=== PATIENT | male | born 1985 | race American Indian/Alaskan Native ===

== ENCOUNTER 2016-11-29 17:48 | Emergency (ER) | payer MEDICARE, MEDICAID ==
[2016-11-29 21:08] VITALS: BP 143/83
--- NOTE | 2016-11-29 22:03 | EDM.PDOC ---
ED HPI GENERAL MEDICAL PROBLEM - General Chief Complaint: Gastrointestinal Problem Stated Complaint: BLOOD IN STOOL, [id number] Time Seen by Provider: 11/29/16 19:50 Source of Information: Reports: Family - History of Present Illness INITIAL COMMENTS - FREE TEXT/NARRATIVE: ED with family, Family reports patient 2 day hx of "bloody stools" Famiy note bright red bleeding on toilet paper but not in stool or BM. Patient hax CKD, blind and developmentally challenged. No vomiting, appetite has been good. No urinary difficulties, Bilateral Lower Back Pain Score (Numeric/FACES): 10 - Related Data Allergies Allergy/AdvReac Type Severity Reaction Status Date / Time amoxicillin Allergy Cannot Verified 05/12/16 23:00 Remember cefaclor Allergy Cannot Verified 05/12/16 23:00 Remember dextromethorphan Allergy Cannot Verified 05/12/16 23:00 Remember metoclopramide Allergy Cannot Verified 05/12/16 23:00 Remember Penicillins Allergy Cannot Verified 05/12/16 23:00 Remember Sulfa (Sulfonamide Allergy Cannot Verified 05/12/16 23:00 Antibiotics) Remember Home Meds: Home Meds Mycophenolate [Myfortic] 1 tab PO BID 08/20/14 [History] Atenolol [Atenolol] 50 mg PO DAILY 10/20/15 [History] Lisinopril 20 mg PO DAILY 10/20/15 [History] Pregabalin [Lyrica] 100 mg PO DAILY 10/20/15 [History] oxyCODONE 5 mg PO BID 10/20/15 [History] Past Medical History HEENT History: Reports: Impaired Vision Other HEENT History: blind Cardiovascular History: Reports: Hypertension Respiratory History: Reports: None Gastrointestinal History: Reports: Cholelithiasis Genitourinary History: Reports: Renal Disease Other Genitourinary History: chronic kidney disease, proteinuria, focal segmental glomerulosclerosis Musculoskeletal History: Reports: Arthritis Other Psychiatric History: mental retardation Endocrine/Metabolic History: Reports: None Hematologic History: Reports: None Immunologic History: Reports: None Oncologic (Cancer) History: Reports: None - Past Surgical History GI Surgical History: Reports: Cholecystectomy Social & Family History - Tobacco Use Smoking Status *Q: Never Smoker Second Hand Smoke Exposure: No - Caffeine Use Caffeine Use: Reports: None - Alcohol Use Days Per Week of Alcohol Use: 0 - Recreational Drug Use Recreational Drug Use: No ED ROS GENERAL - Review of Systems Review Of Systems: See Below Constitutional: Denies: Fever, Chills, Weakness, Decreased Appetite HEENT: Reports: No Symptoms Respiratory: Reports: No Symptoms Cardiovascular: Reports: No Symptoms GI/Abdominal: Reports: No Symptoms : Reports: No Symptoms Musculoskeletal: Reports: No Symptoms Skin: Reports: No Symptoms Neurological: Reports: No Symptoms ED EXAM, GI/ABD - Physical Exam Exam: See Below Exam Limited By: No Limitations General Appearance: Alert, No Apparent Distress Ears: Normal External Exam Nose: Normal Inspection Throat/Mouth: Normal Inspection Head: Atraumatic, Normocephalic Neck: Normal Inspection Respiratory/Chest: No Respiratory Distress, Lungs Clear Cardiovascular: Normal Peripheral Pulses, Regular Rate, Rhythm GI/Abdominal Exam: Normal Bowel Sounds, Soft, Tender (lower quadrants with palpation) (Male) Exam: Other (uncooperative with exam. slight excoriation of skin in rectal area vs true hemocult + stool. ) Back Exam: Normal Inspection Extremities: Normal Inspection, Pedal Edema (trace) Neurological: Alert Psychiatric: Normal Affect, Normal Mood Skin Exam: Warm, Dry. No: Intact (slight excoriation of rectal area) Course - Vital Signs Last Recorded V/S: Last Vital Signs Temp 98 F 11/29/16 18:39 Pulse 77 11/29/16 21:07 Resp 16 11/29/16 21:07 BP 143/83 H 11/29/16 21:07 Pulse Ox 98 11/29/16 21:07 - Orders/Labs/Meds Labs: Laboratory Tests 11/29/16 11/29/16 11/29/16 Range/Units 20:28 20:28 20:28 WBC 15.9 H (5.0-10.0) 10^3/uL RBC 6.18 (4.6-6.2) 10^6/uL Hgb 16.2 (14.0-18.0) g/dL Hct 50.0 (40.0-54.0) % MCV 80.9 (80-100) fL MCH 26.2 L (27.0-34.0) pg MCHC 32.4 L (33.0-35.0) g/dL Plt Count 386 (150-450) 10^3/uL Neut % (Auto) 66.0 (42.2-75.2) % Lymph % (Auto) 23.2 (20.5-50.1) % [place] % (Auto) 7.1 (2-8) % Eos % (Auto) 3.1 H (1.0-3.0) % Baso % (Auto) 0.6 (0.0-1.0) % Add Manual Diff Yes Neutrophils % (Manual) 68 % Band Neutrophils % % Lymphocytes % (Manual) 25 % Monocytes % (Manual) 6 % Eosinophils % (Manual) 1 % PT 9.7 (9.0-12.0) SEC INR 1.0 (0.9-1.2) Sodium 141 (135-145) mmol/L Potassium 4.2 (3.6-5.0) mmol/L Chloride 106 (101-111) mmol/L Carbon Dioxide 23.0 (21.0-31.0) mmol/L Anion Gap 16.2 BUN 36 H (7-18) mg/dL Creatinine 3.1 H (0.6-1.3) mg/dL Est Cr Clr Drug Dosing 29.48 mL/min Estimated GFR (MDRD) 23 BUN/Creatinine Ratio 11.61 Glucose 103 (74-105) mg/dL Calcium 9.4 (8.4-10.2) mg/dl Magnesium 1.9 (1.8-2.5) mg/dL Total Bilirubin 0.4 (0.2-1.0) mg/dL AST 18 (10-42) IU/L ALT 16 (10-60) IU/L Alkaline Phosphatase 111 (42-121) IU/L Total Protein 7.5 (6.7-8.2) g/dl Albumin 3.2 (3.2-5.5) g/dl Globulin 4.3 Albumin/Globulin Ratio 0.74 Amylase 46 (28-100) U/L Lipase 38 (22-51) U/L Urine Color (YELLOW) Urine Appearance (CLEAR) Urine pH (5.0-9.0) Ur Specific [place] (1.005-1.030) Urine Protein (NEGATIVE) Urine Glucose (UA) (NEGATIVE) Urine Ketones (NEGATIVE) Urine Occult Blood (NEGATIVE) Urine Nitrite (NEGATIVE) Urine Bilirubin (NEGATIVE) Urine Urobilinogen (0.2-1.0) mg/dL Ur Leukocyte Esterase (NEGATIVE) Urine RBC /HPF Urine WBC (0-5/HPF) /HPF Urine Bacteria (0-FEW/HPF) /HPF 11/29/16 Range/Units 21:20 WBC (5.0-10.0) 10^3/uL RBC (4.6-6.2) 10^6/uL Hgb (14.0-18.0) g/dL Hct (40.0-54.0) % MCV (80-100) fL MCH (27.0-34.0) pg MCHC (33.0-35.0) g/dL Plt Count (150-450) 10^3/uL Neut % (Auto) (42.2-75.2) % Lymph % (Auto) (20.5-50.1) % [place] % (Auto) (2-8) % Eos % (Auto) (1.0-3.0) % Baso % (Auto) (0.0-1.0) % Add Manual Diff Neutrophils % (Manual) % Band Neutrophils % % Lymphocytes % (Manual) % Monocytes % (Manual) % Eosinophils % (Manual) % PT (9.0-12.0) SEC INR (0.9-1.2) Sodium (135-145) mmol/L Potassium (3.6-5.0) mmol/L Chloride (101-111) mmol/L Carbon Dioxide (21.0-31.0) mmol/L Anion Gap BUN (7-18) mg/dL Creatinine (0.6-1.3) mg/dL Est Cr Clr Drug Dosing mL/min Estimated GFR (MDRD) BUN/Creatinine Ratio Glucose (74-105) mg/dL Calcium (8.4-10.2) mg/dl Magnesium (1.8-2.5) mg/dL Total Bilirubin (0.2-1.0) mg/dL AST (10-42) IU/L ALT (10-60) IU/L Alkaline Phosphatase (42-121) IU/L Total Protein (6.7-8.2) g/dl Albumin (3.2-5.5) g/dl Globulin Albumin/Globulin Ratio Amylase (28-100) U/L Lipase (22-51) U/L Urine Color Light yellow (YELLOW) Urine Appearance Clear (CLEAR) Urine pH 6.5 (5.0-9.0) Ur Specific [place]acco[place] 1.015 (1.005-1.030) Urine Protein >=300 H (NEGATIVE) Urine Glucose (UA) Negative (NEGATIVE) Urine Ketones Negative (NEGATIVE) Urine Occult Blood Small H (NEGATIVE) Urine Nitrite Negative (NEGATIVE) Urine Bilirubin Negative (NEGATIVE) Urine Urobilinogen 0.2 (0.2-1.0) mg/dL Ur Leukocyte Esterase Negative (NEGATIVE) Urine RBC 0-5 /HPF Urine WBC 0-5 (0-5/HPF) /HPF Urine Bacteria Rare (0-FEW/HPF) /HPF - Radiology Interpretation Free Text/Narrative:: CT abdomen negative Departure - Departure Time of Disposition: 21:59 Disposition: Home, Self-Care 01 Condition: Good Clinical Impression: Rectal bleed - Discharge Information Instructions: Hemorrhoids, [id number] Referrals: PCP,None [Ordering Only Provider] - Forms: ED Department Discharge Additional Instructions: follow up with primary care if worsening of symptoms recheck blood pressure in clinic urgent follow up if noting blood in stool.
== END 2016-11-29 22:39 | disposition home or self-care (01) ==
LOC: DL.ED 17:48
DX: K62.5 Hemorrhage of anus and rectum (principal); H54.7 Unspecified visual loss; I12.9 Hypertensive chronic kidney disease with stage 1 through stage 4 chronic kidney disease, or unspecified chronic kidney disease; N18.9 Chronic kidney disease, unspecified; M19.90 Unspecified osteoarthritis, unspecified site; Z90.49 Acquired absence of other specified parts of digestive tract; Z88.1 Allergy status to other antibiotic agents; Z88.0 Allergy status to penicillin; Z88.2 Allergy status to sulfonamides; Z88.8 Allergy status to other drugs, medicaments and biological substances
CPT/HCPCS: 36415; 74176; 80053; 81001; 82150; 82272; 83690; 83735; 85025; 85610; 99283; 99284

== ENCOUNTER 2017-08-07 03:00 | Emergency (ER) | payer MEDICARE, MEDICAID ==
--- NOTE | 2017-08-07 03:10 | EDM.PDOC ---
ED HPI GENERAL MEDICAL PROBLEM - General Chief Complaint: Cardiovascular Problem Stated Complaint: [id number] NEEDS HEART CHECKED BP READING HIGH Time Seen by Provider: 08/07/17 03:07 Source of Information: Reports: Family History Limitations: Reports: Other (non conversant) - History of Present Illness INITIAL COMMENTS - FREE TEXT/NARRATIVE: family states Pt c/o chest filling up and they check his BP and it was high. unable recall how high. then went to ambulance bay and had check and were told to come here. Mid-Sternal Chest Pain Score (Numeric/FACES): 9 - Related Data Allergies Allergy/AdvReac Type Severity Reaction Status Date / Time amoxicillin Allergy Cannot Verified 08/07/17 03:48 Remember cefaclor Allergy Cannot Verified 08/07/17 03:48 Remember dextromethorphan Allergy Cannot Verified 08/07/17 03:48 Remember metoclopramide Allergy Cannot Verified 08/07/17 03:48 Remember Penicillins Allergy Cannot Verified 08/07/17 03:48 Remember Sulfa (Sulfonamide Allergy Cannot Verified 08/07/17 03:48 Antibiotics) Remember Home Meds: Home Meds Mycophenolate [Myfortic] 1 tab PO BID 08/20/14 [History] Atenolol 50 mg PO DAILY 10/20/15 [History] Lisinopril 20 mg PO DAILY 10/20/15 [History] Pregabalin [Lyrica] 100 mg PO DAILY 10/20/15 [History] oxyCODONE 5 mg PO BID 10/20/15 [History] Past Medical History HEENT History: Reports: Impaired Vision Other HEENT History: blind Cardiovascular History: Reports: Hypertension Respiratory History: Reports: None Gastrointestinal History: Reports: Cholelithiasis Genitourinary History: Reports: Renal Disease Other Genitourinary History: chronic kidney disease, proteinuria, focal segmental glomerulosclerosis Musculoskeletal History: Reports: Arthritis Other Psychiatric History: mental retardation Endocrine/Metabolic History: Reports: None Hematologic History: Reports: None Immunologic History: Reports: None Oncologic (Cancer) History: Reports: None - Past Surgical History GI Surgical History: Reports: Cholecystectomy Social & Family History - Caffeine Use Caffeine Use: Reports: None ED ROS GENERAL - Review of Systems Review Of Systems: ROS reveals no pertinent complaints other than HPI. ED EXAM, GENERAL - Physical Exam Exam: See Below Exam Limited By: No Limitations General Appearance: Alert, WD/WN, No Apparent Distress Ears: Hearing Grossly Normal Throat/Mouth: No Airway Compromise Head: Atraumatic Neck: Non-Tender, Full Range of Motion Respiratory/Chest: No Respiratory Distress Cardiovascular: Regular Rate, Rhythm GI/Abdominal: Soft, Non-Tender Neurological: Alert, Normal Cognition, No Motor/Sensory Deficits Psychiatric: Normal Affect, Normal Mood Skin Exam: Warm, Dry, Normal Color Lymphatic: No Adenopathy Course - Vital Signs Last Recorded V/S: Last Vital Signs Temp 36.3 C 08/07/17 03:05 Pulse 83 08/07/17 03:05 Resp 19 08/07/17 03:05 BP 144/91 H 08/07/17 03:05 Pulse Ox 97 08/07/17 03:05 - Orders/Labs/Meds Orders: Active Orders 24 hr Category Date Time Status EKG Documentation Completion [RC] STAT Care 08/07/17 03:05 Active Labs: Laboratory Tests 08/07/17 08/07/17 Range/Units 03:25 03:25 WBC 17.6 H (5.0-10.0) 10^3/uL RBC 4.99 (4.6-6.2) 10^6/uL Hgb 13.7 L D (14.0-18.0) g/dL Hct 41.4 (40.0-54.0) % MCV 83.0 (80-100) fL MCH 27.5 (27.0-34.0) pg MCHC 33.1 (33.0-35.0) g/dL Plt Count 395 (150-450) 10^3/uL Neut % (Auto) 70.0 (42.2-75.2) % Lymph % (Auto) 20.3 L (20.5-50.1) % [place] % (Auto) 6.0 (2-8) % Eos % (Auto) 3.4 H (1.0-3.0) % Baso % (Auto) 0.3 (0.0-1.0) % Sodium 140 (135-145) mmol/L Potassium 4.4 (3.6-5.0) mmol/L Chloride 110 (101-111) mmol/L Carbon Dioxide 21.0 (21.0-31.0) mmol/L Anion Gap 13.4 BUN 63 H D (7-18) mg/dL Creatinine 5.0 H D (0.6-1.3) mg/dL Est Cr Clr Drug Dosing 18.11 mL/min Estimated GFR (MDRD) 13 BUN/Creatinine Ratio 12.60 Glucose 100 (74-105) mg/dL Calcium 8.7 (8.4-10.2) mg/dl Total Bilirubin 0.4 (0.2-1.0) mg/dL AST 31 (10-42) IU/L ALT 23 (10-60) IU/L Alkaline Phosphatase 119 (42-121) IU/L Troponin I < 0.02 (0.00-0.02) ng/ml Total Protein 7.2 (6.7-8.2) g/dl Albumin 3.3 (3.2-5.5) g/dl Globulin 3.9 Albumin/Globulin Ratio 0.85 - Re-Assessments/Exams Free Text/Narrative Re-Assessment/Exam: 08/07/17 04:13 results discussed with family and they state pt looks good now and is resting comfortably without c/o. Departure - Departure Time of Disposition: 04:14 Disposition: Home, Self-Care 01 Condition: Good Clinical Impression: Atypical chest pain Hypertensive heart disease Qualifiers: Heart failure presence: without heart failure Qualified Code(s): I11.9 - Hypertensive heart disease without heart failure Instructions: Hypertension, [id number] Forms: ED Department Discharge Additional Instructions: 1) rest 2) follow up with clinic 3) recheck as needed - My Orders Last 24 Hours: My Active Orders 08/07/17 03:05 EKG Documentation Completion [RC] STAT - Assessment/Plan Last 24 Hours: My Active Orders 08/07/17 03:05 EKG Documentation Completion [RC] STAT
[2017-08-07 04:01] LABS: CHLORIDE,CL 110 mmol/L (101-111); SODIUM,NA 140 mmol/L (135-145)
[2017-08-07 04:21] VITALS: BP 134/78
--- NOTE | 2017-08-09 07:50 | EKG ---
08/07/2017- POOJA VELAZQUEZ - FINDINGS: EKG per my reading, shows sinus rhythm at the rate of 71 with right bundle-branch block. [facility] /[id number]
== END 2017-08-07 04:28 | disposition home or self-care (01) ==
LOC: DL.ED 03:00
DX: I11.9 Hypertensive heart disease without heart failure (principal); Z88.1 Allergy status to other antibiotic agents; Z88.0 Allergy status to penicillin; Z88.2 Allergy status to sulfonamides; Z88.8 Allergy status to other drugs, medicaments and biological substances; Z79.899 Other long term (current) drug therapy
CPT/HCPCS: 36415; 71045; 80053; 84484; 85025; 93005; 93010; 99283; 99285

== ENCOUNTER 2018-06-01 18:19 | Emergency (ER) | payer MEDICARE, MEDICAID ==
[2018-06-01 18:43] VITALS: BP 137/75
--- NOTE | 2018-06-01 19:20 | EDM.PDOC ---
ED HPI GENERAL MEDICAL PROBLEM - General Chief Complaint: Respiratory Problem Stated Complaint: rash on arm Time Seen by Provider: 06/01/18 19:20 Source of Information: Reports: Family, RN Notes Reviewed History Limitations: Reports: No Limitations - History of Present Illness INITIAL COMMENTS - FREE TEXT/NARRATIVE: Coughing today. low grade fever, Rash on right forearm around dialysis site. Dad notes new trial of medication in area to numb prior to accessing fistula. Upper Back Pain Score (Numeric/FACES): 10 - Related Data Allergies Allergy/AdvReac Type Severity Reaction Status Date / Time amoxicillin Allergy Cannot Verified 06/01/18 18:43 Remember cefaclor Allergy Cannot Verified 06/01/18 18:43 Remember dextromethorphan Allergy Cannot Verified 06/01/18 18:43 Remember metoclopramide Allergy Cannot Verified 06/01/18 18:43 Remember Penicillins Allergy Cannot Verified 06/01/18 18:43 Remember Sulfa (Sulfonamide Allergy Cannot Verified 06/01/18 18:43 Antibiotics) Remember Home Meds: Home Meds oxyCODONE 5 mg PO BID 10/20/15 [History] Atenolol 50 mg PO DAILY 06/01/18 [History] Sevelamer Carbonate [Renvela] 800 mg PO TID 06/01/18 [History] amLODIPine Besylate [Amlodipine Besylate] 5 mg PO DAILY 06/01/18 [History] Past Medical History HEENT History: Reports: Impaired Vision Other HEENT History: blind Cardiovascular History: Reports: Hypertension Respiratory History: Reports: None Gastrointestinal History: Reports: Cholelithiasis Genitourinary History: Reports: Dialysis, Renal Disease Other Genitourinary History: chronic kidney disease, proteinuria, focal segmental glomerulosclerosis Musculoskeletal History: Reports: Arthritis Neurological History: Reports: None Other Psychiatric History: mental retardation Endocrine/Metabolic History: Reports: None Hematologic History: Reports: None Immunologic History: Reports: None Oncologic (Cancer) History: Reports: None Dermatologic History: Reports: None - Infectious Disease History Infectious Disease History: Reports: None - Past Surgical History GI Surgical History: Reports: Cholecystectomy Social & Family History - Tobacco Use Smoking Status *Q: Never Smoker Second Hand Smoke Exposure: No - Caffeine Use Caffeine Use: Reports: None - Recreational Drug Use Recreational Drug Use: No ED ROS GENERAL - Review of Systems Review Of Systems: ROS reveals no pertinent complaints other than HPI. ED EXAM, GENERAL - Physical Exam Exam: See Below Exam Limited By: No Limitations General Appearance: Alert, No Apparent Distress Eye Exam: Bilateral Eye: Abnormal EOM (blind) Ears: Normal External Exam, Normal TMs Nose: Normal Inspection Throat/Mouth: Inflammation, Other (no swelling or exudate) Head: Atraumatic, Normocephalic Neck: Normal Inspection Respiratory/Chest: No Respiratory Distress, Lungs Clear, Other (ocassional dry cough) GI/Abdominal: Normal Bowel Sounds, Soft Extremities: Normal Inspection Neurological: Alert, Oriented Psychiatric: Normal Affect Skin Exam: Warm, Dry, Rash (right renetta, minimal reness to base, mpaised papular blisters wrist to mid forearm few fluid filled. ) Course - Vital Signs Last Recorded V/S: Last Vital Signs Temp 100.4 F 06/01/18 18:39 Pulse 94 06/01/18 18:39 Resp 18 06/01/18 18:39 BP 137/75 06/01/18 18:39 Pulse Ox 97 06/01/18 18:39 - Orders/Labs/Meds Orders: Active Orders 24 hr Category Date Time Status CXR [Chest 2V] [CR] Urgent Exams 06/01/18 19:39 Taken Meds: Medications Discontinued Medications Generic Name Dose Route Start Last Admin Trade Name Freq PRN Reason Stop Dose Admin Doxycycline Hyclate 100 mg 06/01/18 20:21 06/01/18 20:26 Vibramycin PO 06/01/18 20:22 100 mg ONETIME ONE Administration Guaifenesin 100 mg 06/01/18 20:21 06/01/18 20:25 Robitussin PO 06/01/18 20:22 100 mg ONETIME ONE Administration - Radiology Interpretation Free Text/Narrative:: [facility] Final Radiology Report Call: [phone] assistance Online chat: [email or web address] Name: POOJA VELAZQUEZ Age: 33Years M Date: 06/01/2018 SSN: -- : 1985 Study: XR CHEST 2 VIEWS Requesting Physician: JENNIFER HOFF Images: 2 Addl Studies: Provided Clinical History: Contrast: Contrast Medium: Contrast Amount: Contrast Method: CONFIDENTIALITY STATEMENT This report is intended only for use by the referring physician, and only in accordance with law. If you received this in error, call [phone]. Page 1 of 1 EXAM: XR Chest, 2 Views EXAM DATE/TIME: 06/01/2018 7:43 PM CLINICAL HISTORY: 33 years old, male; Signs and symptoms; Cough TECHNIQUE: XR of the chest, 2 views. COMPARISON: CR Chest 1V Frontal 02/22/2018 11:50 PM FINDINGS: Lungs: Unremarkable. No consolidation. Pleural space: Unremarkable. No pleural effusion. No pneumothorax. Heart/Mediastinum: Unremarkable. No cardiomegaly. Bones/joints: Unremarkable. IMPRESSION: No acute findings. Thank you for allowing us to participate in the care of your patient. Dictated and Authenticated by: Faraz Yañez MD 06/01/2018 7:56 PM Central Time ([place] & [place]) Departure - Departure Time of Disposition: 20:18 Disposition: Home, Self-Care 01 Condition: Good Clinical Impression: Bronchitis, Dialysis patient, Folliculitis - Discharge Information *PRESCRIPTION DRUG MONITORING PROGRAM REVIEWED*: Not Applicable Instructions: Folliculitis Forms: ED Department Discharge Additional Instructions: doxycycline 100mg daily x 10days mupirocin ointment to right arm 3 times daily until healed recheck next week with primary care provider humidifier plain robitussin per package instructions every 4 hours as needed for cough - My Orders Last 24 Hours: My Active Orders 06/01/18 19:39 CXR [Chest 2V] [CR] Urgent - Assessment/Plan Last 24 Hours: My Active Orders 06/01/18 19:39 CXR [Chest 2V] [CR] Urgent
[2018-06-01] MEDS ORDERED: guaiFENesin 100 MG/5 ML Soln 5 ML UD Cup PO ONE (20:21)
[2018-06-01] MEDS ORDERED: Doxycycline 100 MG Cap PO ONE (20:21)
== END 2018-06-01 20:30 | disposition home or self-care (01) ==
LOC: DL.ED 18:19
DX: J20.9 Acute bronchitis, unspecified (principal); L73.9 Follicular disorder, unspecified; I12.9 Hypertensive chronic kidney disease with stage 1 through stage 4 chronic kidney disease, or unspecified chronic kidney disease; N18.9 Chronic kidney disease, unspecified; Z99.2 Dependence on renal dialysis; Z79.899 Other long term (current) drug therapy; Z88.1 Allergy status to other antibiotic agents; Z88.0 Allergy status to penicillin; Z88.2 Allergy status to sulfonamides
CPT/HCPCS: 71046; 99283-25; A9270-GY

== ENCOUNTER 2020-12-08 18:40 | Emergency (ER) | payer MEDICARE, MEDICAID ==
[2020-12-08 20:36] VITALS: PULSE 88
[2020-12-08] MEDS ORDERED: Benzonatate 100 MG Cap PO ONE (20:45)
[2020-12-08 21:50] LABS: ANION GAP 14.7 mEq/L (7-13)
--- NOTE | 2020-12-08 22:23 | CR ---
PROCEDURE INFORMATION: Exam: XR Chest Exam date and time: 12/08/2020 10:01 PM Age: 35 years old Clinical indication: Cough TECHNIQUE: Imaging protocol: XR of the chest. Views: 1 view. COMPARISON: CR Chest 2V 06/01/2018 7:43 PM FINDINGS: Lungs: Prominence of the left hilum may be projectional. Pleural spaces: Unremarkable. No pleural effusion. No pneumothorax. Heart/Mediastinum: Unremarkable. No cardiomegaly. Bones/joints: Unremarkable. Other findings: Faint opacities over the left base are seen. IMPRESSION: Recommend follow-up PA and lateral. Question of left hilar prominence and faint left basilar opacities.
--- NOTE | 2020-12-08 22:41 | EDM.PDOC ---
ED HPI GENERAL MEDICAL PROBLEM - General Chief Complaint: Respiratory Problem Stated Complaint: COUGHING, COVID TEST NEGATIVE Time Seen by Provider: 12/08/20 20:30 Source of Information: Reports: Patient, Family History Limitations: Reports: No Limitations - History of Present Illness INITIAL COMMENTS - FREE TEXT/NARRATIVE: continued cough and not feeling well, arrival with dad. Dialysis patient, On antibiotic since last Tuesday for URI. COVID negative on that day. no fever, appetite fair . Chill today. Continued cough. Non productive. Taking muccinex but not much help. Completed azithromycin. Upper Back Pain Score (Numeric/FACES): 10 - Related Data Allergies Allergy/AdvReac Type Severity Reaction Status Date / Time amoxicillin Allergy Cannot Verified 06/01/18 18:43 Remember cefaclor Allergy Cannot Verified 06/01/18 18:43 Remember dextromethorphan Allergy Cannot Verified 06/01/18 18:43 Remember metoclopramide Allergy Cannot Verified 06/01/18 18:43 Remember Penicillins Allergy Cannot Verified 06/01/18 18:43 Remember Sulfa (Sulfonamide Allergy Cannot Verified 06/01/18 18:43 Antibiotics) Remember Home Meds: Home Meds oxyCODONE 5 mg PO BID 10/20/15 [History] Sevelamer Carbonate [Renvela] 800 mg PO TID 06/01/18 [History] amLODIPine Besylate [Amlodipine Besylate] 5 mg PO DAILY 06/01/18 [History] atenoloL [Atenolol] 50 mg PO DAILY 06/01/18 [History] Past Medical History HEENT History: Reports: Impaired Vision Other HEENT History: blind Cardiovascular History: Reports: Hypertension Respiratory History: Reports: None Gastrointestinal History: Reports: Cholelithiasis Genitourinary History: Reports: Dialysis, Renal Disease Other Genitourinary History: chronic kidney disease, proteinuria, focal segmental glomerulosclerosis Musculoskeletal History: Reports: Arthritis Neurological History: Reports: None Other Psychiatric History: mental retardation Endocrine/Metabolic History: Reports: None Hematologic History: Reports: None Immunologic History: Reports: None Oncologic (Cancer) History: Reports: None Dermatologic History: Reports: None - Infectious Disease History Infectious Disease History: Reports: None - Past Surgical History GI Surgical History: Reports: Cholecystectomy Social & Family History - Tobacco Use Tobacco Use Status *Q: Never Tobacco User Second Hand Smoke Exposure: No - Caffeine Use Caffeine Use: Reports: None - Recreational Drug Use Recreational Drug Use: No ED ROS GENERAL - Review of Systems Review Of Systems: Comprehensive ROS is negative, except as noted in HPI. ED EXAM, GENERAL - Physical Exam Exam: See Below Exam Limited By: No Limitations General Appearance: Alert, No Apparent Distress Eye Exam: Bilateral Eye: Other (blind) Ears: Hearing Grossly Normal Nose: Normal Inspection Throat/Mouth: Normal Inspection Head: Atraumatic Neck: Normal Inspection Respiratory/Chest: No Respiratory Distress, Lungs Clear, Other (ocassional dry cough) Cardiovascular: Regular Rate, Rhythm GI/Abdominal: Normal Bowel Sounds, Soft Back Exam: Normal Inspection Extremities: Normal Inspection Neurological: Alert, Oriented Psychiatric: Normal Mood Skin Exam: Warm, Dry, Normal Color Course - Vital Signs Last Recorded V/S: Last Vital Signs Temp 97.8 F 12/08/20 20:27 Pulse 88 12/08/20 20:27 Resp 18 12/08/20 20:27 BP Pulse Ox 94 L 12/08/20 20:27 - Orders/Labs/Meds Orders: Active Orders 24 hr Category Date Time Status CULTURE BLOOD [BC] Stat Lab 12/08/20 21:23 Received Labs: Laboratory Tests 12/08/20 12/08/20 12/08/20 Range/Units 20:44 21:23 21:23 WBC 16.3 H (5.0-10.0) 10^3/uL RBC 3.73 L (4.6-6.2) 10^6/uL Hgb 11.7 L (14.0-18.0) g/dL Hct 35.4 L (40.0-54.0) % MCV 94.9 D (80-100) fL MCH 31.4 (27.0-34.0) pg MCHC 33.1 (33.0-35.0) g/dL Plt Count 352 (150-450) 10^3/uL Neut % (Auto) 74.2 (42.2-75.2) % Lymph % (Auto) 17.0 L (20.5-50.1) % [place] % (Auto) 5.7 (2-8) % Eos % (Auto) 2.6 (1.0-3.0) % Baso % (Auto) 0.5 (0.0-1.0) % Sodium 139 (136-145) mmol/L Potassium 4.7 (3.5-5.1) mmol/L Chloride 97 L (98-107) mmol/L Carbon Dioxide 32 (21-32) mmol/L Anion Gap 14.7 H (7-13) mEq/L BUN 24 H (7-18) mg/dL Creatinine 7.00 H* (0.70-1.30) mg/dL Est Cr Clr Drug Dosing 12.57 mL/min Estimated GFR (MDRD) 9 BUN/Creatinine Ratio 3.4 (No establ ref range) Glucose 110 H (70-99) mg/dL Lactic Acid (0.4-2.0) mmol/L Calcium 8.7 (8.5-10.1) mg/dL Total Bilirubin 0.7 (0.2-1.0) mg/dL AST 20 (15-37) U/L ALT 37 (16-63) U/L Alkaline Phosphatase 139 H (46-116) U/L B-Natriuretic Peptide 286 H (0-100) pg/ml Total Protein 8.7 H (6.4-8.2) g/dL Albumin 3.6 (3.4-5.0) g/dL Globulin 5.1 Albumin/Globulin Ratio 0.7 SARS-CoV-2 RNA (CHAVEZ) Negative (NEGATIVE) 12/08/20 Range/Units 21:23 WBC (5.0-10.0) 10^3/uL RBC (4.6-6.2) 10^6/uL Hgb (14.0-18.0) g/dL Hct (40.0-54.0) % MCV (80-100) fL MCH (27.0-34.0) pg MCHC (33.0-35.0) g/dL Plt Count (150-450) 10^3/uL Neut % (Auto) (42.2-75.2) % Lymph % (Auto) (20.5-50.1) % [place] % (Auto) (2-8) % Eos % (Auto) (1.0-3.0) % Baso % (Auto) (0.0-1.0) % Sodium (136-145) mmol/L Potassium (3.5-5.1) mmol/L Chloride (98-107) mmol/L Carbon Dioxide (21-32) mmol/L Anion Gap (7-13) mEq/L BUN (7-18) mg/dL Creatinine (0.70-1.30) mg/dL Est Cr Clr Drug Dosing mL/min Estimated GFR (MDRD) BUN/Creatinine Ratio (No establ ref range) Glucose (70-99) mg/dL Lactic Acid 1.6 (0.4-2.0) mmol/L Calcium (8.5-10.1) mg/dL Total Bilirubin (0.2-1.0) mg/dL AST (15-37) U/L ALT (16-63) U/L Alkaline Phosphatase (46-116) U/L B-Natriuretic Peptide (0-100) pg/ml Total Protein (6.4-8.2) g/dL Albumin (3.4-5.0) g/dL Globulin Albumin/Globulin Ratio SARS-CoV-2 RNA (CHAVEZ) (NEGATIVE) Meds: Medications Discontinued Medications Generic Name Dose Route Start Last Admin Trade Name Freq PRN Reason Stop Dose Admin Benzonatate 100 mg 12/08/20 20:45 12/08/20 20:58 Benzonatate 100 Mg Cap PO 12/08/20 20:46 100 mg ONETIME ONE Administration Levofloxacin 500 mg 12/08/20 22:56 12/08/20 23:03 Levofloxacin 500 Mg Tab PO 12/08/20 22:57 500 mg ONETIME ONE Administration Departure - Departure Time of Disposition: 22:53 Disposition: Home, Self-Care 01 Condition: Good Clinical Impression: Dialysis patient Pneumonia Qualifiers: Pneumonia type: due to unspecified organism Laterality: left Lung location: lower lobe of lung Qualified Code(s): J18.9 - Pneumonia, unspecified organism - Discharge Information *PRESCRIPTION DRUG MONITORING PROGRAM REVIEWED*: No *COPY OF PRESCRIPTION DRUG MONITORING REPORT IN PATIENT ARACELY: No Instructions: Upper Respiratory Infection, Adult, [id number], Community- Acquired Pneumonia, Adult, [id number] Forms: ED Department Discharge Additional Instructions: Continue muccinex per package label Tesselon 100mg every 8 hours as needed for cough Levaquin 250mg one every day for 7 days continue dialysis diet as tolerated Recheck clinic later this week Sepsis Event Note (ED) - Focused Exam Vital Signs: Vital Signs Temp Pulse Resp Pulse Ox 12/08/20 20:27 97.8 F 88 18 94 L - My Orders Last 24 Hours: My Active Orders 12/08/20 21:23 CULTURE BLOOD [BC] Stat - Assessment/Plan Last 24 Hours: My Active Orders 12/08/20 21:23 CULTURE BLOOD [BC] Stat
[2020-12-08] MEDS ORDERED: Levofloxacin 500 MG Tab PO ONE (22:56)
== END 2020-12-08 23:03 | disposition home or self-care (01) ==
LOC: DL.ED 18:40
DX: J18.9 Pneumonia, unspecified organism (principal); I12.9 Hypertensive chronic kidney disease with stage 1 through stage 4 chronic kidney disease, or unspecified chronic kidney disease; N18.9 Chronic kidney disease, unspecified; Z99.2 Dependence on renal dialysis; Z88.0 Allergy status to penicillin; Z88.8 Allergy status to other drugs, medicaments and biological substances; Z88.2 Allergy status to sulfonamides; Z20.822 Contact with and (suspected) exposure to COVID-19
CPT/HCPCS: 36415; 71045; 80053; 83605; 83880; 85025; 87040; 99283; A9270; U0002

== ENCOUNTER 2023-10-04 20:09 | Emergency (ER) | payer MEDICARE, MEDICAID ==
[2023-10-04 20:45] VITALS: BP 165/108; PULSE 117
[2023-10-04 21:36] LABS: BASOPHILS PERCENT AUTO 0.4 % (0.0-1.0); EOSINOPHILS PERCENT AUTO 1.7 % (1.0-3.0); HEMATOCRIT 34.8 % (40.0-54.0); HEMOGLOBIN 10.8 g/dL (14.0-18.0); LYMPHOCYTES PERCENT AUTO 16.6 % (20.5-50.1); MEAN CORPUSCULAR HEMOGLOBIN 29.6 pg (27.0-34.0); MEAN CORPUSCULAR VOLUME 95.3 fL (80-100); NEUTROPHILS PERCENT AUTO 74.3 % (42.2-75.2); PLATELET COUNT,PLT 348 10^3/uL (150-450); RED BLOOD CELL COUNT 3.65 10^6/uL (4.6-6.2); WHITE BLOOD CELL COUNT,WBC 13.8 10^3/uL (5.0-10.0)
[2023-10-04 21:56] LABS: A/G RATIO 0.8; ALBUMIN 3.8 g/dL (3.4-5.0); ANION GAP 15.1 mEq/L (7-13); BILIRUBIN TOTAL 0.4 mg/dL (0.2-1.0); BUN/CREATININE RATIO 4.2 (No establ ref range); CALCIUM 9.5 mg/dL (8.5-10.1); CREATININE 11.54 mg/dL (0.70-1.30); EST CRCL DRUG DOSING (CG) 7.4 mL/min; POTASSIUM,K 4.1 mmol/L (3.5-5.1); PROTEIN TOTAL,TP 8.5 g/dL (6.4-8.2)
[2023-10-04 21:59] LABS: LACTIC ACID 0.9 mmol/L (0.4-2.0)
[2023-10-04 22:05] LABS: APPEARANCE,URINE CLEAR (CLEAR); BILIRUBIN,URINE NEGATIVE (NEGATIVE); COLOR,URINE YELLOW (YELLOW); GLUCOSE,URINE 100 (NEGATIVE); KETONES,URINE NEGATIVE (NEGATIVE); LEUKOCYTE ESTERASE,URINE NEGATIVE (NEGATIVE); NITRITE,URINE NEGATIVE (NEGATIVE); OCCULT BLOOD,URINE SMALL (NEGATIVE); PH,URINE 8.5 (5.0-9.0); PROTEIN,URINE >=300 (NEGATIVE); UROBILINOGEN,URINE 0.2 mg/dL (0.2-1.0)
[2023-10-04 22:41] LABS: BACTERIA,URINE RARE /HPF (0-FEW/HPF); EPITHELIAL CELLS,URINE FEW /HPF (NOT SEEN); RBC,URINE 0-5 /HPF (0-5); WBC,URINE 0-5 /HPF (0-5/HPF)
== END 2023-10-04 22:41 | disposition home or self-care (01) ==
LOC: DL.ED 20:09
DX: D72.829 Elevated white blood cell count, unspecified (principal); I12.9 Hypertensive chronic kidney disease with stage 1 through stage 4 chronic kidney disease, or unspecified chronic kidney disease; N18.9 Chronic kidney disease, unspecified; Z90.49 Acquired absence of other specified parts of digestive tract; Z79.899 Other long term (current) drug therapy; Z79.891 Long term (current) use of opiate analgesic; Z88.0 Allergy status to penicillin; Z88.1 Allergy status to other antibiotic agents; Z88.2 Allergy status to sulfonamides; Z88.8 Allergy status to other drugs, medicaments and biological substances
CPT/HCPCS: 36415; 71045; 80053; 81001; 83605; 83735; 85025; 87040; 93005; 99284

== ENCOUNTER 2024-01-18 15:28 | Emergency (ER) | payer MEDICARE, MEDICAID ==
[2024-01-18 15:56] VITALS: BP 154/92
[2024-01-18 16:57] VITALS: PULSE 82
== END 2024-01-18 16:55 | disposition home or self-care (01) ==
LOC: DL.ED 15:28
DX: M54.2 Cervicalgia (principal); I10 Essential (primary) hypertension; Z90.49 Acquired absence of other specified parts of digestive tract; Z79.899 Other long term (current) drug therapy; Z88.0 Allergy status to penicillin; Z88.1 Allergy status to other antibiotic agents; Z88.8 Allergy status to other drugs, medicaments and biological substances
CPT/HCPCS: 72125; 99283